=== PATIENT | male | born 1945 | race African-American/Black ===

== ENCOUNTER → 2016-09-26 | Outpatient (CLI) | payer MEDICARE ==
[2016-08-30 08:30] VITALS: BP 135/68
[~2016-09-26] MED LIST: CARV12.52 PO; CARV25TA2 PO; HYDR-2868 PO; LOSA1TAB17 PO; METF750T2 PO; PRAV20TA2 PO; TAMS0.4C2 PO
--- NOTE | 2016-09-26 15:47 | KCIC ---
PROCEDURE CT head without contrast dated 09/26/2016. HISTORY Followup subdural solid. TECHNIQUE Contiguous axial imaging of the head was performed from skull base to vertex. No contrast administered. COMPARISON FINDINGS Previously described areas of high density along the right frontal convexity and anterior right temporal lobe are no longer apparent. No midline shift or mass effect. The ventricles are stable in caliber. Minimal patchy low density in the deep/subcortical periventricular white matter, unchanged. 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 No acute hemorrhage or extra-axial collection. Posterior fossa and brainstem unremarkable. Minimal mucosal thickening bilateral ethmoid air cells. Mild opacification of the right maxillary sinus. Partial opacification of the left mastoid air cells. No acute calvarial abnormality. IMPRESSION - Interval resolution of left frontal subdural hematoma and small parenchymal hemorrhage of the anterior frontotemporal region on the right. No new hemorrhage or extra-axial collection. - Mild chronic small vessel ischemic changes and atrophy, similar to prior study. - Mild sinus disease with nonspecific partial opacification of the left mastoid air cells. Electronically signed by: Ganga Nelson (Sep 26, 2016 15:46:41)
== END | disposition home or self-care (01) ==
LOC: KCIC CT 15:10
PROVIDERS: ATTEND Neurological Surgery
DX: Z86.79 Personal history of other diseases of the circulatory system (principal)
CPT/HCPCS: 70450